=== PATIENT | male | born 1945 | race African-American/Black ===

== ENCOUNTER 2020-08-10 14:00 | Emergency (ER) | payer MEDICARE, MEDICAID ==
[~2020-08-10] VITALS: Ht 175.3 cm; Wt 94.8 kg
[~2020-08-10 14:00] MED LIST: AMLO10TA80 PO; HYDR-3282 PO; HYDR25TA PO; PRO AIR MDI HHN; TIOT18CA3 IH
[2020-08-10 14:14] VITALS: BP 155/106
[2020-08-10 16:11] LABS: CHLORIDE 104 mEq/L (98-107)
[2020-08-10 16:15] LABS: BASOPHILS % 1.8 % (0.0-2.0); EOSINOPHILS % 0.7 % (0.0-5.0); HEMATOCRIT. 37.8 % (42.0-52.0); HEMOGLOBIN. 12.9 g/dL (14.0-18.0); LYMPHOCYTES % 22.3 % (20.0-50.0); MEAN CORPUSCULAR HEMOGLOBIN 33.2 pg (28.0-32.0); MEAN CORPUSCULAR VOLUME 97.6 fL (80.0-94.0); MEAN PLATELET VOLUME 10.7 fl (7.4-10.4); MONOCYTES % 9.2 % (2.0-8.0); RED BLOOD CELL COUNT 3.88 mill/uL (4.7-6.1); RED CELL DISTRIBUTION WIDTH 17.9 % (11.6-14.6)
[2020-08-10] MEDS ORDERED: ASPIRIN 325MG EC TABLET PO ONE (16:45)
[2020-08-10] MEDS ORDERED: FUROSEMIDE 40MG/4ML VIAL IVP ONE (16:45)
[2020-08-10 18:08] LABS: PLATELET 81 x1000/uL (130-400)
== END 2020-08-10 16:30 | disposition left against medical advice (07) ==
LOC: ER 14:00
DX: R60.0 Localized edema (principal); J44.9 Chronic obstructive pulmonary disease, unspecified; I10 Essential (primary) hypertension; F17.200 Nicotine dependence, unspecified, uncomplicated; Z98.890 Other specified postprocedural states; Z79.899 Other long term (current) drug therapy
CPT/HCPCS: 36415; 71045; 80053; 83880; 84484; 85025; 93005; 99285